=== PATIENT | male | born 2000 | race Caucasian/White ===

== ENCOUNTER 2022-12-16 21:52 | Emergency (ER) | payer OTHER ==
[2022-12-16] MEDS ORDERED: Boostrix 0.5 ML (Tdap) VIAL (>/=7 yrs of age) ONE (23:46)
[2022-12-17] MEDS ORDERED: Amoxicillin/Potassium Clav 875 MG TAB ONE (00:02)
== END 2022-12-16 23:52 | disposition home or self-care (01) ==
LOC: CSHERS 21:52
DX: S01.512A Laceration without foreign body of oral cavity, initial encounter (principal); W26.8XXA Contact with other sharp object(s), not elsewhere classified, initial encounter; Z23 Encounter for immunization
CPT/HCPCS: 90471; 90715